=== PATIENT | female | born 1995 | race Caucasian/White ===

== ENCOUNTER 2019-01-23 07:35 | Emergency (ER) | payer BC, OTHER ==
[~2019-01-23] VITALS: Ht 157.5 cm; Wt 74.5 kg
[~2019-01-23 07:35] MED LIST: ACET325T45 PO; GUAI118L22 PO; IBUP-1542 PO; ONDA4TAB13 PO
[2019-01-23 07:38] VITALS: BP 139/76; PULSE 87; RESP 18; Ht 157.5 cm; Wt 74.5 kg
[2019-01-23] MEDS ORDERED: KETOROLAC 30 MG INJ IM STA (07:45)
[2019-01-23] MEDS ORDERED: ONDANSETRON (ODT) 4 MG TAB ODT STA (07:45)
--- NOTE | 2019-01-23 07:50 | ERD ---
ER Documentation Chief Complaint Chief Complaint burning pain on urination,back pain,nausea HPI 24-year-old female presents with lower back pain and dysuria and hematuria that began today. Also nausea, she tried to vomit but only dry heaves. No fever. She is tolerating oral intake. ROS All systems reviewed and are negative except as per history of present illness. Medications Home Meds Active Scripts Ondansetron (Ondansetron Odt) 4 Mg Tab.rapdis, 4 MG PO Q6H PRN for NAUSEA AND/OR VOMITING, #20 TAB Prov:ROSA LAGUNAS PA-C 01/23/19 Phenazopyridine Hcl* (Pyridium*) 200 Mg Tab, 200 MG PO TID PRN for URINARY PAIN, #6 TAB Prov:ROSA LAGUNAS PA-C 01/23/19 Nitrofurantoin Monohyd Macrocr* (Macrobid*) 100 Mg Capsr, 100 MG PO BID for 7 Days, CAP Prov:ROSA LAGUNAS PA-C 01/23/19 Ondansetron Hcl* (Zofran*) 4 Mg Tab, 4 MG PO Q6H PRN for NAUSEA AND OR VOMITING, #6 TAB Prov:ROSIBEL STINSON DO 07/23/15 Acetaminophen* (Acetaminophen*) 325 Mg Tablet, 325 MG PO Q4H PRN for PAIN AND OR ELEVATED TEMP, #30 TAB Prov:ROSIBEL STINSON DO 07/23/15 Ibuprofen* (Ibuprofen*) 600 Mg Tablet, 600 MG PO Q8, #30 TAB Prov:SHANTELLROSIBEL MCELROY DO 07/23/15 Guaifenesin/Codeine Phosphate (CHERATUSSIN AC SYRUP) 118 Ml Liquid, 5 ML PO Q6, #118 ML Prov:SHANTELLROSIBEL MCELROY 07/23/15 Reported Medications [None] No Conflict Check 09/30/10 Allergies Allergies: Coded Allergies: Penicillins (Verified Allergy, Mild, 01/23/19) PMhx/Soc Medical and Surgical Hx: pt denies Medical Hx, pt denies Surgical Hx History of Surgery: No Anesthesia Reaction: No Hx Neurological Disorder: No Hx Respiratory Disorders: No Hx Cardiac Disorders: No Hx Psychiatric Problems: No Hx Miscellaneous Medical Probl: No Hx Alcohol Use: No Hx Substance Use: No Hx Tobacco Use: No Smoking Status: Never smoker FmHx Family History: No diabetes Physical Exam Vitals Vital Signs Date Temp Pulse Resp B/P (MAP) Pulse Ox O2 O2 Flow FiO2 Time Delivery Rate 01/23/19 98.4 87 18 139/76 100 07:38 (97) Physical Exam INITIAL VITAL SIGNS: Reviewed by me GENERAL: Awake, alert and oriented x 4, well appearing, nontoxic, speaking in full sentences. No acute distress HEAD: Atraumatic NECK: Supple. No masses. Full range of motion. No meningismus. No midline tenderness. EYES: EOMI. PERRL. RESPIRATORY: Clear to auscultation bilaterally. Symmetric chest wall rise. No wheezing or rales. No accessory muscle use. CV: Regular rate and rhythm. No murmurs, rubs, or gallops. ABDOMEN: Soft, non-distended. Nontender. Negative [place]. Negative McBurneys point tenderness. No CVA tenderness bilaterally. No guarding. No rebound. Back Exam: Compartments: Soft Motor: Normal flexion and extension of bilateral hip/knee/ankle/foot Sensation: Intact to light touch throughout Bones: No midline TTP Results 24 hrs Laboratory Tests Test 01/23/19 08:35 01/23/19 08:37 POC Beta HCG, Qualitative NEGATIVE Bedside Urine pH (LAB) 6.5 Bedside Urine Protein (LAB) 1+ Bedside Urine Glucose (UA) Negative Bedside Urine Ketones (LAB) Negative Bedside Urine Blood 3+ Bedside Urine Nitrite (LAB) Negative Bedside Urine Leukocyte Esterase (L 2+ Current Medications Medications Dose Sig/[place] Start Time Status Last (Trade) Ordered Route PRN Stop Time Admin Dose Reason Admin Ketorolac 30 mg ONCE STAT 01/23/19 DC 01/23/19 Tromethamine IM 07:45 01/23/19 08:39 (Toradol) 07:47 Ondansetron 8 mg ONCE STAT 01/23/19 DC 01/23/19 HCl (Zofran ODT 07:45 01/23/19 07:52 Odt) 07:47 Procedures/MDM 24-year-old female presents with dysuria hematuria and increased urinary frequency as well as lower back pain. Patients is alert, oriented, well appearing, and in no distress with normal vital signs. There is no fever, tachyc ardia, or tachypnea. Low suspicion for pyelonephritis. I explained to her that she may have a urinary tract infection or possibly kidney stone. Low suspicion for septic stone. She has no CVA tenderness on exam. She was given Toradol and Zofran here. Urine dip, culture, and test ordered. Urine was positive for evidence of UTI with leukocytes and blood. She felt better after the Toradol and Zofran here. She was discharged with Zofran, Pyridium, and Macrobid. Patient counseled regarding my diagnostic impression and care plan. Prior to discharge all questions answered. Pt agrees with treatment plan and understands strict return precautions. Pt is instructed to follow up with primary care provider within 24-48 hours. Precautionary instructions provided including instructions to return to the ER if not improving or for any worsening or changing symptoms or concerns. Departure Diagnosis: Primary Impression: Cystitis Condition: Stable ROSA LAGUNAS PA-C Jan 23, 2019 07:50
[2019-01-23] MEDS ORDERED: PHEN-538 PO (08:48)
[2019-01-23] MEDS ORDERED: NITR-58 PO (08:48)
[2019-01-23] MEDS ORDERED: ONDA4TAB14 PO (08:48)
== END 2019-01-23 08:55 | disposition home or self-care (01) ==
LOC: FTE 07:35
DX: N30.91 Cystitis, unspecified with hematuria (principal)
CPT/HCPCS: 81003; 81025; 87086; J1885; 96372